=== PATIENT | male | born 1950 | race African-American/Black ===

== ENCOUNTER 2017-11-28 06:33 | Day surgery (SDC) | payer OTHER ==
[2017-11-24 11:20] VITALS: BMI 24.2
[2017-11-28] MEDS ORDERED: oxyCODONE HCL 5 MG TABLET PO PRN ×2 (07:46)
[2017-11-28] MEDS ORDERED: ONDANSETRON 4 MG/2 ML VIAL IVPUSH PRN (07:46)
[2017-11-28] MEDS ORDERED: ACETAMINOPHEN 1000 MG/100 ML VIAL (NON FORMULARY) IVPB ONE (07:46)
[2017-11-28] MEDS ORDERED: LACTATED RINGERS SOLUTION 1,000 ML IV SCH (08:00)
--- NOTE | 2017-11-28 09:36 | HP ---
History & Physical Update - History History: No Change - Physical Physical: No Change - Assessment Assessment: No Change - Plan Plan: No Change (Here today for elective repair of his torn right shoulder rotator cuff. No new meds or problems since completing initial H&P (which is located in patient's chart).)
[2017-11-28] MEDS ORDERED: GABAPENTIN 300 MG CAPSULE (FP) PO SCH (10:00)
[2017-11-28] MEDS ORDERED: oxyCODONE HCL 10 MG SUSTAINED ACTING TABLET PO SCH (10:00)
[2017-11-28] MEDS ORDERED: DEXAMETHASONE SOD PHOSPHATE/PF 10 MG/ML SDV ONE (10:42)
[2017-11-28] MEDS ORDERED: ROPIVACAINE HCL 0.5% 30ML VIAL ONE (10:43)
[2017-11-28] MEDS ORDERED: MIDAZOLAM HCL 2 MG/2 ML SINGLE DOSE VIAL ONE ×2 (10:43→11:41)
[2017-11-28] MEDS ORDERED: PROPOFOL 20 ML ONE ×4 (11:38→14:28)
[2017-11-28] MEDS ORDERED: VERAPAMIL HCL 5 MG/2 ML VIAL IVPUSH ONE (11:41)
[2017-11-28] MEDS ORDERED: SODIUM CHLORIDE 0.9% P/F 10 ML VIAL IJ ONE (12:26)
[2017-11-28] MEDS ORDERED: ceFAZolin SODIUM 1 GM VIAL ONE ×2 (12:26→12:27)
[2017-11-28] MEDS ORDERED: VANCOMYCIN 1,000 MG VIAL (RESTRICTED TO ID ONLY) ONE (12:42)
[2017-11-28] MEDS ORDERED: TRANEXAMIC ACID 1000 MG/10 ML VIAL ONE (12:47)
--- NOTE | 2017-11-28 14:47 | OP ---
Operative Note - Note: Operative Date: 11/28/17 Pre-Operative Diagnosis: Right shoulder impingement syndrome. Right rotator cuff tendinosis & partial thickness tear Operation: Right shoulder open: 1. Neer decompression. 2. Urszula procedure. 3. Rotator cuff repair Post-Operative Diagnosis: Same as Pre-op Surgeon: Tl Sunshine Cloth Neutralizer: Simeon Colbert Anesthesiologist/LANDSCAPE DESIGNER: Aayush Malave Anesthesia: Local Specimens Removed: Right distal clavicle. Right inferior acromion Estimated Blood Loss (mls): 25 Fluid Volume Replaced (mls): 1,000 Operative Report Dictated: Yes
[2017-11-28] MEDS ORDERED: PROAIR IH SCH (15:00)
--- NOTE | 2017-11-28 15:02 | SURG ---
Surgery Surgical Elastic Knitter Note Surgical Elastic Knitter: Simeon Colbert PA-C Date of Service: 11/28/17 Diagnosis: Right shoulder impingement syndrome. Right rotator cuff tendinosis & partial thickness tear Procedure: Right shoulder open: 1. Neer decompression. 2. Urszula procedure. 3. Rotator cuff repair I was present for the entirety of the operative procedure. For further detail, please refer to operative report. Visit type - Case Type Case Type: Scheduled Admission - New patient This patient is new to me today: Yes Date on this admission: 11/28/17
[2017-11-28 17:07] VITALS: TEMP 97.5
[2017-11-28 17:16] VITALS: BP 143/89; PULSE 86
[2017-11-28] MEDS ORDERED: DOXAZOSIN MESYLATE 2 MG TABLET (FP) PO SCH (22:00)
[2017-11-28] MEDS ORDERED: ATORVASTATIN CA 10 MG TABLET (FP) PO SCH (22:00)
[2017-11-28] MEDS ORDERED: PATIENT'S OWN MEDICATION (NON-FORMULARY) (Pravastatin Sodium 40 MG) PO SCH (22:00)
--- NOTE | 2017-11-30 16:30 | OP ---
DATE OF OPERATION: 11/28/2017 SURGEON: Tl Sunshine MD ASSOCIATE THEATRE PROFESSOR: MICHAEL Anderson PREOPERATIVE DIAGNOSES: 1. Right shoulder impingement syndrome. 2. Right rotator cuff tendinosis. 3. Partial-thickness tear, right rotator cuff. POSTOPERATIVE DIAGNOSIS: 1. Right shoulder impingement syndrome. 2. Right rotator cuff tendinosis. 3. Partial-thickness tear, right rotator cuff. SURGICAL PROCEDURE: Right shoulder open: 1. Neer decompression. 2. Urszula procedure. 3. Rotator cuff repair. ANESTHESIA: Interscalene block and sedation. POSITION: Supine. INCISION: Anterior. ESTIMATED BLOOD LOSS: 25 mL. INTRAVENOUS FLUID: 1 L crystalloid. SPECIMENS: Right distal clavicle and right inferior acromion. DRAINS: None. COMPLICATIONS: None. URINE OUTPUT: None. BACTERIOLOGY: None. TRANSFUSIONS: None. CLOSURE: Number 1 and 2-0 Vicryl and 3-0 Biosyn. INDICATIONS: The patient is a 67-year-old gentleman who is indicated for a right shoulder open Neer decompression with Urszula procedure and rotator cuff repair in order to facilitate improved motion and mobilization of his right upper extremity. The patient was identified in the holding area by his arm band. A long conversation was held with the patient regarding the risks, benefits, and alternatives of the above-named procedure. Risks include but are not limited to: Pain, bleeding, infection, damage to surrounding structures (including nerves, blood vessels, skin, ligaments, tendons, and bone), wound complications, need for further surgery, blood clots, myocardial infarction, pulmonary embolism, anesthesia complications, compartment syndrome, limb loss, limp, loss of function, and . Benefits as mentioned above. Alternatives include no surgery. All questions were answered. The patient understood and agreed to the procedure. Informed consent was obtained, witnessed, and verified. The patient's correct operative limb was marked, and the patient was taken to the operating room after being seen by the anesthesia and nursing staff. PROCEDURE: The patient was brought in to the operating room, placed on the OR table, and secured with a safety strap. Consent and the operative site was again verified with the patient and anesthesia staff. Anesthesia was then administered without complications, including IV antibiotics. Timeout was done, led by me, the attending surgeon. The patient was positioned with all bony prominences well padded, and a lollipop body pad was positioned to prevent the patient from falling off the right side of the table. This well-padded lollipop pad was placed against the lateral aspect of his right thoracic cage. The operative site was then prepped and draped in standard sterile fashion. Timeout was again done and the case began. An incision was carried out in line with the middle of the coracoid process up and over the acromioclavicular joint. Subcutaneous dissection was carried with electrocautery down to the level of the distal clavicle. With the distal clavicle exposed, sharp Hohmanns were used around the posterior and inferior surfaces of the distal clavicle so as to elevate it. A 15 blade was used to walk along the distal clavicle until fully into the acromioclavicular joint. At that point, we marked 1 cm of distal clavicle to be excised, and an oscillating saw was used to do so with a beveled angular cut so as to avoid leaving a sharp corner to impinge into the rotator cuff below. The excision arthroplasty of the distal clavicle was completed and excised using a 15 blade. Hemostasis was assured using a combination of electrocautery and bipolar cautery. The wounds were copiously irrigated throughout the case using normal saline solution. Next, anterior fibers of the deltoid were gently elevated, revealing the coracoacromial ligament below. This was incised longitudinally using a 15 blade. The coracoacromial ligament was fully released using Metzenbaum scissors. After the CA ligament was fully decompressed, attention was then turned to the acromion. The AC joint capsule was neatly dissected so as to expose the distal acromion. Next, 50% of the undersurface of the acromion was cut using oscillating saw parallel to the surface of the acromion. A half-inch osteotome was used to complete the cut and to free the excised segment of bone. The acromioplasty was then removed using a rongeur with a 15 blade to release any soft tissue attachments. Again the wounds were copiously irrigated using normal saline solution and hemostasis was assured using electrocautery and bipolar cautery. Next, with finger palpation, an entire finger could be delivered into the subacromial space and bursal adhesions were gently released using manual finger debridement. The shoulder was then taken through a full range of motion, where an anterolateral tear of the rotator cuff was visualized. This was a partial-thickness tear. Three number 1 Vicryl sutures were used in simple interrupted suture fashion to repair the rotator cuff derangement. Again, the wounds were copiously irrigated. At this point in time, the wounds were closed primarily using number 1 and 2 0 Vicryl sutures with a 3-0 Biosyn in intracuticular fashion for the skin closure. A sterile compressive dressing was applied. Sponge and needle counts were correct at the end of the case. I, the attending surgeon, was present and scrubbed throughout the case. The patient was then transferred to a hospital stretcher and to the recovery room in stable condition, having tolerated the procedure well. MD LEONEL Pineda/[id number]
--- NOTE | 2017-12-03 17:08 | PATH ---
Surgical Pathology Report Patient Name: EDENILSON LOPES [facility]. Rec. #: [id number] /Age/Gender: 1950 (Age: 67) / M Account: [id number] Location: [facility] Taken: 11/28/2017 Received: 11/28/2017 Reported: 12/03/2017 Physicians: Tl Sunshine M.D. Specimen(s) Received A: RIGHT DISTAL CLAVICLE B: ACROMIOPLASTY RIGHT SHOULDER Clinical History Impingement syndrome right shoulder Final Diagnosis A. DISTAL CLAVICLE, RIGHT EXCISION: CARTILAGE-CAPPED BONE WITH NO PATHOLOGIC FINDINGS. B. SHOULDER, RIGHT, ACROMIOPLASTY: PORTIONS OF CARTILAGE-CAPPED BONE WITH NO PATHOLOGIC FINDINGS. Electronically Signed Denise Phillips M.D. Gross Description A. Received in formalin labeled "right distal clavicle," is a 2.7 x 1.4 x 1.1 cm irregular portion of bone. A sales training representative section is submitted in one cassette, following decalcification. B. Received in formalin labeled "acromioplasty right shoulder," are 3 bone fragments ranging from 1.3 x 0.5 x 0.3 cm to 2.3 x 1.2 x 0.3 cm. Staffing Director sections are submitted in one cassette, following decalcification. 12/01/201712/01/2017
== END 2017-11-28 17:05 | disposition home or self-care (01) ==
LOC: FASU 06:33
PROVIDERS: ATTEND Orthopaedic Surgery Adult Reconstructive Orthopaedic Surgery
PROC: 0LQ10ZZ Repair Right Shoulder Tendon, Open Approach (ICD-10-PCS; principal; 2017-11-28 13:22)
PROC: 0PB90ZZ Excision of Right Clavicle, Open Approach (ICD-10-PCS; 2017-11-28 13:22)
DX: M75.41 Impingement syndrome of right shoulder (principal); M75.111 Incomplete rotator cuff tear or rupture of right shoulder, not specified as traumatic; M75.91 Shoulder lesion, unspecified, right shoulder
CPT/HCPCS: 88304-TC; 88311-TC; 94760